=== PATIENT | female | born 1985 | race Caucasian/White ===

== ENCOUNTER 2019-10-07 08:38 | Inpatient (IN) | payer MEDICAID ==
[~2019-10-07] VITALS: Ht 157.5 cm; Wt 71.7 kg
[2019-10-07] MEDS ORDERED: OXYTOCIN 10 UNITS/ML VIAL IM SCH (09:00)
[2019-10-07] MEDS ORDERED: NALBUPHINE 10 MG/ML AMP IVP PRN (09:00)
[2019-10-07] MEDS ORDERED: MISOPROSTOL 25 MCG TAB VG PRN (09:00)
[2019-10-07] MEDS ORDERED: METHYLERGONOVINE 0.2 MG/ML AMP IM PRN (09:00)
[2019-10-07] MEDS ORDERED: CARBOPROST 250 MCG/ML AMP IM PRN (09:00)
[2019-10-07] MEDS ORDERED: PROMETHAZINE 25 MG/ML VIAL IVP PRN (09:00)
[2019-10-07] MEDS ORDERED: MISOPROSTOL 25 MCG TAB ONE (10:43)
[2019-10-07 11:04] LABS: APPEARANCE,URINE HAZY (CLEAR); BILIRUBIN,URINE NEGATIVE (NEGATIVE); BLOOD, URINE NEGATIVE (NEGATIVE); COLOR,URINE YELLOW (YELLOW); LEUKOCYTE ESTERASE ,URINE TRACE (NEGATIVE); NITRITE, URINE NEGATIVE (NEGATIVE); UGLUCOSE NEGATIVE (NEGATIVE)
[2019-10-07 11:09] LABS: BASOPHILS % (AUTO) 0.3 % (0.0-2.0); EOSINOPHILS # (AUTO) 0.1 K/uL (0-0.4); EOSINOPHILS % (AUTO) 1.2 % (0.0-4.0); HEMATOCRIT 38.5 % (36-48); HEMOGLOBIN 13.3 g/dL (12.0-16.0); LYMPHOCYTES # (AUTO) 1.2 K/uL (2.5-16.5); LYMPHOCYTES % (AUTO) 21.9 % (20.5-51.1); MEAN CORPUSCULAR HEMOGLOBIN 32 pg (27-31); MEAN CORPUSCULAR HGB CONC 35 g/dL (33-37); MEAN CORPUSCULAR VOLUME 91.4 fL (80-94); MONOCYTES # (AUTO) 0.5 K/uL (0.8-1.0); MONOCYTES % (AUTO) 8.9 % (1.7-9.3); NEUTROPHILS # (AUTO) 3.6 K/uL (1.8-7.7); NEUTROPHILS % (AUTO) 67.7 % (42.2-75.2); PLATELET COUNT (AUTO) 188 K/uL (140-450); RED BLOOD CELL COUNT(AUTO) 4.22 MIL/uL (4.20-5.40); RED CELL DISTRIBUTION WIDTH 13.7 % (11.6-13.7); WHITE BLOOD COUNT (AUTO) 5.3 K/uL (4.8-10.8)
[2019-10-07 11:19] LABS: RBC,URINE NONE SEEN /HPF (0-5); WBC,URINE 0-5 /HPF (0-5)
[2019-10-07 11:57] LABS: CREATININE 0.6 mg/dL (0.6-1.3)
[2019-10-07 12:05] LABS: TOTAL BILIRUBIN 0.6 mg/dL (0.0-1.0)
[2019-10-07 12:06] LABS: ALBUMIN 2.5 g/dL (3.4-5.0)
[2019-10-07] MEDS: LACTATED RINGERS 1,000 ML IV SCH (20:40)
[2019-10-07] MEDS ORDERED: BUPIVACAINE 0.125%/NS PREMIX 250 ML ONE (23:20)
[2019-10-08] MEDS ORDERED: NALOXONE 0.4 MG/ML VIAL IVP PRN ×4 (00:45→17:40)
[2019-10-08] MEDS ORDERED: HYDROmorphone 1 MG/ML AMP IVP PRN (00:45)
[2019-10-08] MEDS ORDERED: ONDANSETRON 4 MG/2 ML VIAL IVP PRN ×3 (00:45→17:40)
[2019-10-08] MEDS: LACTATED RINGERS 1,000 ML IV SCH (01:00)
--- NOTE | 2019-10-08 06:41 | NUR ---
PATIENT HAS BEEN SCREENED AND CATEGORIZED LOW NUTRITION RISK. PATIENT WILL BE SEEN WITHIN 7 DAYS OF ADMISSION. 10/14/19 MARGOTH ROBERTS MS, RDN
[2019-10-08] MEDS ORDERED: OXYTOCIN 20 UNITS in LACTATED RINGERS 1,000 ML IV SCH (08:30)
[2019-10-08] MEDS ORDERED: BUPIVACAINE 0.125%/NS PREMIX 250 ML ONE (13:38)
[2019-10-08] MEDS ORDERED: CITRIC ACID/SODIUM CITRATE 30 ML UDC PO SCH (15:40)
[2019-10-08] MEDS ORDERED: CITRIC ACID/SODIUM CITRATE 30 ML UDC ONE (15:41)
[2019-10-08] MEDS ORDERED: SODIUM BICARBONATE 8.4% PFS 50 MEQ/50 ML SYR IVP ONE (16:02)
[2019-10-08] MEDS ORDERED: MORPHINE PRES FREE 10 MG/10 ML AMP IV ONE (16:02)
[2019-10-08] MEDS ORDERED: LIDOCAINE/EPI MPF 2%1:200000 10 ML VIAL INJ ONE (16:02)
[2019-10-08] MEDS ORDERED: ePHEDrine 50 MG/ML VIAL ONE (16:31)
[2019-10-08] MEDS ORDERED: MIDAZOLAM 2 MG/2 ML VIAL ONE (16:54)
[2019-10-08] MEDS ORDERED: KETOROLAC 30 MG/ML VIAL IVP PRN (17:40)
[2019-10-08] MEDS ORDERED: diphenhydrAMINE 50 MG/ML VIAL IVP PRN (17:40)
[2019-10-08] MEDS ORDERED: NALBUPHINE 10 MG/ML AMP IVP PRN (17:40)
[2019-10-08] MEDS ORDERED: OXYTOCIN 10 UNITS in LACTATED RINGERS 1,000 ML IV SCH (18:03)
[2019-10-08] MEDS ORDERED: METHYLERGONOVINE 0.2 MG/ML AMP IM PRN (18:05)
[2019-10-08] MEDS ORDERED: MEASLES, MUMPS, AND RUBELLA 1 VIAL SQVAC PRN (18:05)
[2019-10-08] MEDS ORDERED: ONDANSETRON 4 MG/2 ML VIAL ONE (18:19)
[2019-10-08] MEDS ORDERED: diphenhydrAMINE 50 MG/ML VIAL ONE (18:19)
[2019-10-08] MEDS ORDERED: OXYTOCIN 20 UNITS/LR PREMIX 1,000 ML IV ONE (18:19)
[2019-10-08] MEDS: OXYTOCIN 20 UNITS/LR PREMIX 1,000 ML IV ONE ×2 (18:36→18:50)
[2019-10-08] MEDS ORDERED: CARBOPROST 250 MCG/ML AMP IM PRN (18:45)
[2019-10-08] MEDS ORDERED: PROMETHAZINE 25 MG/ML VIAL IVP PRN (18:45)
[2019-10-09] MEDS ORDERED: KETOROLAC 30 MG/ML VIAL IM/IVP SCH
[2019-10-09 05:10] LABS: BASOPHILS # (AUTO) 0.1 K/uL (0.00-0.22); BASOPHILS % (AUTO) 0.6 % (0.0-2.0); EOSINOPHILS % (AUTO) 0.1 % (0.0-4.0); HEMATOCRIT 28.3 % (36-48); HEMOGLOBIN 9.9 g/dL (12.0-16.0); LYMPHOCYTES % (AUTO) 9.7 % (20.5-51.1); MEAN CORPUSCULAR HEMOGLOBIN 32 pg (27-31); MEAN CORPUSCULAR HGB CONC 35 g/dL (33-37); MEAN CORPUSCULAR VOLUME 92.3 fL (80-94); MONOCYTES # (AUTO) 0.7 K/uL (0.8-1.0); MONOCYTES % (AUTO) 6.4 % (1.7-9.3); NEUTROPHILS # (AUTO) 8.9 K/uL (1.8-7.7); NEUTROPHILS % (AUTO) 83.2 % (42.2-75.2); PLATELET COUNT (AUTO) 144 K/uL (140-450); RED BLOOD CELL COUNT(AUTO) 3.06 MIL/uL (4.20-5.40); RED CELL DISTRIBUTION WIDTH 13.7 % (11.6-13.7); WHITE BLOOD COUNT (AUTO) 10.7 K/uL (4.8-10.8)
[2019-10-09] MEDS: oxyCODONE/APAP 5/325 MG 1 TAB TAB PO PRN (14:43)
[2019-10-10] MEDS: BISACODYL 10 MG SUPP RC SCH (09:45)
[2019-10-10] MEDS: oxyCODONE/APAP 5/325 MG 1 TAB TAB PO PRN (11:15)
[2019-10-10] MEDS ORDERED: INFLUENZA VACCINE QUAD 0.5 ML SYR IMVAC PRN (23:15)
[2019-10-11] MEDS: oxyCODONE/APAP 5/325 MG 1 TAB TAB PO PRN (08:36)
[2019-10-11] MEDS: BISACODYL 10 MG SUPP RC SCH (09:54)
[2019-10-11] MEDS ORDERED: IBUPROFEN 800 MG TAB PO PRN (16:55)
[2019-10-12] MEDS ORDERED: HYDR-5123 PO (07:33)
[2019-10-12] MEDS ORDERED: DOCU-299 PO (07:35)
== END 2019-10-12 13:55 | disposition home or self-care (01) | DRG 540 ==
LOC: MLD 08:38 → MFCC 10-08 20:30
PROVIDERS: ADMIT Obstetrics & Gynecology; ATTEND Obstetrics & Gynecology
PROC: 10D00Z1 Extraction of Products of Conception, Low, Open Approach (ICD-10-PCS; principal; 2019-10-08 16:00)
DX: O62.0 Primary inadequate contractions (principal); D62 Acute posthemorrhagic anemia; Z37.0 Single live birth; Z3A.39 39 weeks gestation of pregnancy
CPT/HCPCS: 36415; 76805; 80053; 81001; 85025; 86592; 86886; 86900; 86901; J0690; J1200; J1885; J2001; J2250; J2270; J2405; J2590; J3490; J7060; J7120; Q0092